=== PATIENT | female | born 1975 | race Caucasian/White ===

== ENCOUNTER 2017-03-13 09:37 | Emergency (ER) | payer MEDICAID, OTHER ==
[2017-03-13 09:59] VITALS: BP 142/92
--- NOTE | 2017-03-13 10:19 | UC ---
Lower Extremity/Ankle HPI - HPI Summary HPI Summary: About a week ago first noticed itchy blisters/bumps on L anterior ankle, first started scratching it by rubbing over stocking. Area got bigger, redder, " opened up" and started draining. Was put on keflex 6 days ago, started covering it at the advice of the pharmacist, now itchy red blistered area is in the distribution of the bandage. No pain, no streaking, never had pain. - History of Current Complaint Chief Complaint: UCSkin Stated Complaint: LEG COMPLAINT Time Seen by Provider: 03/13/17 10:01 Hx Obtained From: Patient Hx Last Menstrual Period: 02/07/17 ?: No Onset/Duration: Gradual Onset, Lasting Days Severity Initially: Mild Severity Currently: Mild Aggravating Factor(s): Standing, Ambulation Alleviating Factor(s): Rest Able to Bear Weight: Yes - Allergies/Home Medications Allergies/Adverse Reactions: Allergies Allergy/AdvReac Type Severity Reaction Status Date / Time No Known Allergies Allergy Verified 04/01/16 18:07 Home Medications: Home Medications Aspirin [Aspirin 81 MG TAB] 81 mg PO DAILY 03/13/17 [History Confirmed 03/13/17] PMH/Surg Hx/FS Hx/Imm Hx Cardiovascular History: Deep Vein Thrombosis Respiratory History: Asthma - Surgical History Surgical History: Unable to Obtain/Confirm - Family History Known Family History: Positive: Hypertension - Social History Lives: With Family Alcohol Use: None Substance Use Type: None Smoking Status (MU): Never Smoked Tobacco Review of Systems Constitutional: Negative Skin: Rash Eyes: Negative ENT: Negative Respiratory: Negative Cardiovascular: Negative Gastrointestinal: Negative Genitourinary: Negative Motor: Negative Neurovascular: Negative Musculoskeletal: Negative Neurological: Negative Psychological: Negative All Other Systems Reviewed And Are Negative: Yes Physical Exam Triage Information Reviewed: Yes Appearance: Well-Appearing, No Pain Distress, Obese Vital Signs: Initial Vital Signs Temp 98.5 F 03/13/17 09:54 Pulse 87 03/13/17 09:54 Resp 17 03/13/17 09:54 BP 142/92 03/13/17 09:54 Pulse Ox 99 03/13/17 09:54 Vital Signs Reviewed: Yes Eye Exam: Normal Eyes: Positive: Conjunctiva Clear ENT Exam: Normal ENT: Positive: Normal ENT inspection, Hearing grossly normal, Pharynx normal, TMs normal Dental Exam: Normal Neck exam: Normal Neck: Positive: Supple, Nontender, No Lymphadenopathy Respiratory Exam: Normal Respiratory: Positive: Chest non-tender, Lungs clear, Normal breath sounds, No respiratory distress, No accessory muscle use Cardiovascular Exam: Normal Cardiovascular: Positive: RRR, No Murmur Musculoskeletal Exam: Normal Neurological Exam: Normal Neurological: Positive: Alert Psychological Exam: Normal Skin Exam: Other - rectangular area of erythema with raised vesicles and weeping in the middle on L anterior ankle Lower Extremity Course/Dx - Differential Dx/Diagnosis Provider Diagnoses: contact dermatitis L ankle Discharge - Discharge Plan Condition: Stable Disposition: HOME Prescriptions: Fluocinonide 0.05% CM(NF) [Lidex 0.05% CREAM(NF)] 1 applic TOPICAL BID #15 gm predniSONE TAB* [Deltasone TAB*] 40 mg PO DAILY #6 tab Patient Education Materials: Contact Dermatitis (ED) Referrals: Antonietta BLEVINS,Danish Jin [Primary Care Provider] - Additional Instructions: Use the topical cream for up to 14 days; you can stop it once your symptoms are under control. Please come back right away if you have increasing redness, pain , streaking from the area, or other worsening.
== END 2017-03-13 10:15 | disposition home or self-care (01) ==
LOC: UCEAST 09:37
DX: L25.9 Unspecified contact dermatitis, unspecified cause (principal); Z86.718 Personal history of other venous thrombosis and embolism; Z79.82 Long term (current) use of aspirin; J45.909 Unspecified asthma, uncomplicated; E66.9 Obesity, unspecified
CPT/HCPCS: 99212; G0463

== ENCOUNTER 2018-03-16 10:16 | Emergency (ER) | payer OTHER ==
[2018-03-16 10:26] VITALS: BP 125/86
--- NOTE | 2018-03-16 10:39 | UC ---
Lower Extremity/Ankle HPI - HPI Summary HPI Summary: This patient is a 42 year old F presenting to [facility] with a chief complaint of RLE pain for the last week. The patient rates the pain 6/10 in severity. Patient reports pain when walking and increased vascularity to the lowest part of the extremity. Hx of DVT and problems with the veins in her legs. She takes 81 mg asa daily. She also sees a doctor for her legs but they were unable to get her in. - History of Current Complaint Chief Complaint: UCLowerExtremity Stated Complaint: SWOLLEN PAINFUL LEG Hx Obtained From: Patient Hx Last Menstrual Period: 02/28/18 Onset/Duration: Lasting Weeks, Still Present Severity Initially: Moderate Severity Currently: Moderate Pain Intensity: 6 Pain Scale Used: 0-10 Numeric Aggravating Factor(s): Standing Able to Bear Weight: Yes - Allergies/Home Medications Allergies/Adverse Reactions: Allergies Allergy/AdvReac Type Severity Reaction Status Date / Time No Known Allergies Allergy Verified 03/16/18 10:26 PMH/Surg Hx/FS Hx/Imm Hx Cardiovascular History: Deep Vein Thrombosis Respiratory History: Asthma - Surgical History Surgical History: Unable to Obtain/Confirm Surgery Procedure, Year, and Place: c/sec x 3 ,vein closure surgeries - Family History Known Family History: Positive: Hypertension - Social History Lives: With Family Alcohol Use: None Substance Use Type: None Smoking Status (MU): Never Smoked Tobacco Review of Systems Constitutional: Negative - fever Musculoskeletal: Other: - RLE pain and increased vascularity All Other Systems Reviewed And Are Negative: Yes Physical Exam - Summary Physical Exam Summary: VITAL SIGNS: Reviewed. GENERAL: Patient is a well-developed and nourished female who is lying comfortable in the stretcher. Patient is not in any acute respiratory distress. HEAD AND FACE: Normocephalic EYES: PERRLA, EOMI x 2. EARS: Hearing grossly intact. MOUTH: Oropharynx within normal limits. NECK: Supple, trachea is midline, no adenopathy, no JVD, no carotid bruit. CHEST: Symmetric, no tenderness at palpation LUNGS: Clear to auscultation bilaterally. No wheezing or crackles. CVS: Regular rate and rhythm, S1 and S2 present, no murmurs or gallops appreciated. ABDOMEN: Soft, non-tender. Bowel sounds are normal. No abdominal abnormal pulsations. EXTREMITIES: Full ROM in all major joints, no edema, no cyanosis or clubbing. Multiple varicose veins. Good pulses and capillary refill NEURO: Alert and oriented x 3. No acute neurological deficits. Speech is normal and follows commands. SKIN: Dry and warm Triage Information Reviewed: Yes Vital Signs: Initial Vital Signs Temp 98 F 03/16/18 10:22 Pulse 84 03/16/18 10:22 Resp 16 03/16/18 10:22 BP 125/86 03/16/18 10:22 Pulse Ox 100 03/16/18 10:22 Vital Signs Reviewed: Yes Diagnostics - Radiology US LE Radiology Interpretation Completed By: Radiologist - Venous Doppler study reveals, NO EVIDENCE OF DEEP VENOUS THROMBOSIS IS IDENTIFIED. Dr. Leo has reviewed this report. Lower Extremity Course/Dx - Course Course Of Treatment: Right lower extremity IMPRESSION: NEGATIVE FOR DVT. Therefore I believe that the patient's symptoms secondary to muscular skeletal pain. The patient was discharged home with follow-up with PCP. Patient is hemodynamically stable alert and oriented 3. - Differential Dx/Diagnosis Provider Diagnoses: Right leg pain Discharge - Sign-Out/Discharge Documenting (check all that apply): Patient Departure - Discharge Plan Condition: Stable Disposition: HOME Patient Education Materials: Leg Pain (ED) Referrals: Jennifer Silver [Primary Care Provider] - Additional Instructions: Take Acetaminophen or ibuprofen for pain Increase your fluid intake Return to the or go to the emergency department if symptoms worsen Follow-up with primary care physician in next 2-3 days - Billing Disposition and Condition Condition: STABLE Disposition: Home
--- NOTE | 2018-03-16 11:50 | RAD ---
Indication: Right leg edema and pain. Duplex Doppler sonography of the deep venous system of the right lower extremity deep venous system was performed. Bilaterally the common femoral veins appear patent and compressible. Right proximal greater saphenous vein, proximal deep femoral vein, femoral vein, popliteal vein, posterior tibial veins and peroneal veins appear patent and compressible. IMPRESSION: NO EVIDENCE OF DEEP VENOUS THROMBOSIS IS IDENTIFIED.
== END 2018-03-16 11:57 | disposition home or self-care (01) ==
LOC: UCEAST 10:16
DX: M79.604 Pain in right leg (principal); Z86.718 Personal history of other venous thrombosis and embolism; Z79.82 Long term (current) use of aspirin; J45.909 Unspecified asthma, uncomplicated; Z82.49 Family history of ischemic heart disease and other diseases of the circulatory system
CPT/HCPCS: 99211; G0463